=== PATIENT | female | born 1990 | race Caucasian/White ===

== ENCOUNTER 2018-03-10 17:25 | Inpatient (IN) | payer OTHER ==
[2018-03-10 17:58] VITALS: BMI 21.9
--- NOTE | 2018-03-10 19:34 | HP ---
COWS - Scale Resting Pulse: 1= [place] 81-100 Sweatin= Chills/Flushing Restless Observation: 3= Extraneous Movement Pupil Size: 1= Pupils >than Normal Bone or Joint Aches: 2= Severe Diffuse Aches Runny Nose/ Eye Tearin= Runny Nose/Eyes GI Upset > 30mins: 3= Vomiting/Diarrhea Tremor Observation: 2= Slight Tremor Visible Yawning Observation: 2= >3x During Session Anxiety or Irritability: 2=Irritable/Anxious Goose Flesh Skin: 0=Smooth Skin COWS Score: 19 CIWA Score Nausea/Vomitin Muscle Tremors: 3 Anxiety: 2 Agitation: 2 Paroxysmal Sweats: 1-Minimal Palms Moist Orientation: 0-Oriented Tacttile Disturbances: 2-Mild Itch/Numbness/Burn Auditory Disturbances: 1-Very Mild Visual Disturbances: 0-None Headache: 2-Mild CIWA-Ar Total Score: 16 - Admission Criteria OASAS Guidelines: Admission for Medically Managed Detox: Requires at least one of the followin. CIWA greater than 12 2. Seizures within the past 24 hours 3. Delirium tremens within the past 24 hours 4. Hallucinations within the past 24 hours 5. Acute intervention needed for co occurring medical disorder 6. Acute intervention needed for co occurring psychiatric disorder 7. Severe withdrawal that cannot be handled at a lower level of care (continued vomiting, continued diarrhea, abnormal vital signs) requiring intravenous medication and/or fluids 8. Patient presents the following: CIWA greater than 12 Admission Criteria Met: Admission criteria met Admission ROS [facility] Chief Complaint: i need help to stop using heroin and xanax Allergies/Adverse Reactions: Allergies Allergy/AdvReac Type Severity Reaction Status Date / Time No Known Allergies Allergy Verified 03/10/18 18:26 History of Present Illness: this 27 years old female with heroin and xanax dependence,withdrawal symptom, abdominal pain,with nausea,vomiting,last detox 11/23 at [facility] hypertension on medication non compliance asthma bipolar 2 and general anxiety eczema no significant period of sobriety weight loss Exam Limitations: No Limitations - Ebola screening Have you traveled outside of the country in the last 21 days: No (N) Have you had contact with anyone from an Ebola affected area: No Have you been sick,other than usual withdrawal symptoms: No Do you have a fever: No - Review of Systems Constitutional: Chills, Loss of Appetite, Malaise, Night Sweats, Changes in sleep, Weakness, Unintentional Wgt. Loss EENT: reports: Tearing, Nose Congestion, Other (eczema) Respiratory: reports: No Symptoms reported, Other (astma) Cardiac: reports: No Symptoms Reported GI: reports: Nausea, Vomiting, Abdominal cramping : reports: No Symptoms Reported Musculoskeletal: reports: Back Pain, Joint Pain, Muscle Pain Integumentary: reports: Dryness, Other (eczema) Neuro: reports: Headache, Tremors Endocrine: reports: No Symptoms Reported Hematology: reports: No Symptoms Reported Psychiatric: reports: No Sypmtoms Reported, Judgement Intact, Mood/Affect Appropiate, Orientated x3 Other Systems: Reviewed and Negative (bipolar 2) Patient History - Patient Medical History Hx Anemia: No Hx Asthma: Yes (albuterol inhaler and nebulizer) Hx Chronic Obstructive Pulmonary Disease (COPD): No Hx Cancer: No Hx Cardiac Disorders: No Hx Congestive Heart Failure: No Hx Hypertension: No Hx Hypercholesterolemia: No Hx Pacemaker: No HX Cerebrovascular Accident: No Hx Seizures: No Hx Dementia: No Hx Diabetes: No Hx Gastrointestinal Disorders: No Hx Liver Disease: No Hx Genitourinary Disorders: No Hx Sexually Transmitted Disorders: No Hx Renal Disease (ESRD): No Hx Thyroid Disease: No Hx Human Immunodeficiency Virus (HIV): No (last 02/24 negative) Hx Hepatitis C: No Hx Depression: Yes Hx Suicide Attempt: No Hx Bipolar Disorder: Yes (bipolar 2 disorder) Hx Schizophrenia: No Other Medical History: no suicidal,no hpmicidal - Patient Surgical History Past Surgical History: No Hx Neurologic Surgery: No Hx Cataract Extraction: No Hx Cardiac Surgery: No Hx Lung Surgery: No Hx Breast Surgery: No Hx Breast Biopsy: No Hx Abdominal Surgery: No Hx Appendectomy: No Hx Cholecystectomy: No Hx Genitourinary Surgery: No Hx Section: No Hx Orthopedic Surgery: No Hx Hysterectomy: No Anesthesia Reaction: No - PPD History Previous Implant?: Yes Documented Results: Positive w/o proof Implanted On Prior R Admission?: No PPD to be Administered?: No - Reproductive History Patient is a Female of Child Bearing Age (11 -55 yrs old): Yes Last Menstrual Period: 01/20/18 Patient : No - Smoking Cessation Smoking history: Current some day smoker Have you smoked in the past 12 months: No Hx Chewing Tobacco Use: No Initiated information on smoking cessation: No - Substance & Tx. History Hx Alcohol Use: No Hx Substance Use: Yes Substance Use Type: Heroin, Tranquilizers Hx Substance Use Treatment: Yes (11/23 in [facility]) - Substances Abused Heroin Route: Inhalation Frequency: Daily Amount used: 12 bags Age of first use: 26 Date of Last Use: 03/09/18 Alprazolam (Xanax) Route: Oral Frequency: Daily Amount used: 4 mgs Age of first use: 23 Date of Last Use: 03/08/17 Family Disease History - Family Disease History Family History: Denies Admission Physical Exam [facility] - Vital Signs Vital Signs: Vital Signs - 24 hr 03/10/18 17:55 Temperature 99.5 F Pulse Rate 87 Respiratory 18 Rate Blood Pressure 127/75 - Physical General Appearance: Yes: Moderate Distress, Tremorous, Irritable, Sweating, Anxious HEENTM: Yes: Normal ENT Inspection, REHAN, Pharynx Normal, Other (eczema) Respiratory: Yes: Lungs Clear, Normal Breath Sounds, No Respiratory Distress Neck: Yes: Within Normal Limits, Supple, Trachea in good position Breast: Yes: Breast Exam Deferred Cardiology: Yes: Within Normal Limits, Regular Rhythm, Regular Rate, S1, S2 Abdominal: Yes: Within Normal Limits, Normal Bowel Sounds, Non Tender, Flat, Soft Genitourinary: Yes: Within Normal Limits Back: Yes: Muscle Spasm Musculoskeletal: Yes: Back pain, Joint Stiffness, Muscle Pain Extremities: Yes: Tremors 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: 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: 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 II-XII NML intact, Fully Oriented, Alert, Motor Strength 5/5 Integumentary: Yes: Dry, Other (eczema) Lymphatic: Yes: Within Normal Limits - Diagnostic (1) Opioid dependence with withdrawal Current Visit: Yes Status: Acute (2) Uncomplicated sedative, hypnotic or anxiolytic withdrawal Current Visit: Yes Status: Acute (3) Eczema Current Visit: Yes Status: Acute (4) Asthma Current Visit: Yes Status: Acute (5) Bipolar 2 disorder Current Visit: Yes Status: Acute (6) Dehydration Current Visit: Yes Status: Acute Cleared for Admission [facility] - Detox or Rehab [facility] Level of Care: Medically Managed Detox Regimen/Protocol: Methadone/Librium [facility] Breath Alcohol Content Breath Alcohol Content: 0 Urine Pregancy Test - Result Urine Test Results: Negative- NO Line Present Urine Drug Screen - Results Drug Screen Negative: No Urine Drug Screen Results: OPI-Opiates, BZO-Benzodiazepines
[2018-03-10] MEDS ORDERED: IBUPROFEN 400 MG TABLET (FP) PO PRN (19:58)
[2018-03-10] MEDS ORDERED: guaiFENesin/D-METHORPHAN HB 10 ML UNIT-DOSE CUPS PO PRN (19:58)
[2018-03-10] MEDS ORDERED: LOPERAMIDE HCL 2 MG CAPSULE PO PRN (19:58)
[2018-03-10] MEDS ORDERED: P-EPHED 60MG/TRIPROLIDI 2.5MG TABLET PO PRN (19:58)
[2018-03-10] MEDS ORDERED: MAGNESIUM HYDROX 2400MG/30ML ORAL SUSPENSION 30 ML CUP PO PRN (19:58)
[2018-03-10] MEDS ORDERED: MAGNESIUM CITRATE 300 ML BOTTLE PO PRN (19:58)
[2018-03-10] MEDS ORDERED: MAG HYDROX/AL HYDROX/SIMETH 30 ML UNIT-DOSE CUP PO PRN (19:58)
[2018-03-10] MEDS ORDERED: MENTHOL/PHENOL 1 EACH UD MM PRN (19:58)
[2018-03-10] MEDS ORDERED: ALBUTEROL SO4 8 GM HFA INHALER IH PRN (20:01)
[2018-03-10] MEDS ORDERED: ALBUTEROL SO4 2.5/IPRATROPIUM 0.5 INH SOL 3 ML VIAL.NEB. NEB PRN (20:06)
[2018-03-10] MEDS ORDERED: diazePAM 5 MG TABLET PO ONE (20:30)
[2018-03-10] MEDS ORDERED: METHADONE HCL 10 MG TABLET (FOR DETOX USE ONLY) PO ONE ×2 (20:30→23:00)
[2018-03-10] MEDS: THIAMINE HCL 100 MG TABLET (FP) PO SCH (21:21)
[2018-03-10] MEDS: BETAMETHASONE DIPR 0.05% CREAM 15 GM TUBE TP SCH (21:47)
[2018-03-10] MEDS ORDERED: MELATONIN 5 MG TABLETS PO PRN (22:00)
[2018-03-10] MEDS: diazePAM 5 MG TABLET PO SCH (22:39)
[2018-03-11 05:35] LABS: URINE APPEARANCE TURBID; URINE BILIRUBIN NEGATIVE (<2.0 mg/dL); URINE COLOR YELLOW; URINE GLUCOSE (UA) NEGATIVE (NEGATIVE); URINE KETONE 1+ (NEGATIVE); URINE LEUK ESTERASE 1+ (NEGATIVE); URINE NITRITE NEGATIVE (NEGATIVE); URINE PROTEIN 1+ (NEGATIVE); URINE UROBILINOGEN NEGATIVE mg/dL (0.2-1.0)
[2018-03-11] MEDS: diazePAM 5 MG TABLET PO SCH ×3 (05:36→21:49)
[2018-03-11 05:39] LABS: EPI CELLS FEW /HPF (FEW); URINE MUCUS FEW
[2018-03-11] MEDS ORDERED: ONDANSETRON *ODT* 4 MG TABLET SL ONE (09:08)
--- NOTE | 2018-03-11 09:13 | PN ---
[facility] CIWA - CIWA Score Nausea/Vomitin-Mild Nausea/No Vomiting Muscle Tremors: 4-Moderate,w/Arms Extend Anxiety: 3 Agitation: 3 Paroxysmal Sweats: 1-Minimal Palms Moist Orientation: 1-Uncertain about Date Tacttile Disturbances: 0-None Auditory Disturbances: 0-None Visual Disturbances: 0-None Headache: 1-Very Mild CIWA-Ar Total Score: 14 S COWS - Scale Resting Pulse: 0= [place] 80 or Below Sweatin= Chills/Flushing Restless Observation: 1= Difficult to Sit Still Pupil Size: 0= Normal to Room Light Bone or Joint Aches: 2= Severe Diffuse Aches Runny Nose/ Eye Tearin= Nasal Congestion GI Upset > 30mins: 2= Nausea/Diarrhea Tremor Observation of Outstretched Hands: 2= Slight Tremor Visible Yawning Observation: 1= 1-2x During Session Anxiety or Irritability: 1=Feels Anxious/Irritable Goose Flesh Skin: 0=Smooth Skin COWS Score: 11 [facility] Progress Note (SOAP) Subjective: body ache nausea tremor sweating joints pain restlessness Objective: 03/11/18 09:11 Vital Signs Temperature 99.2 F 03/11/18 06:26 Pulse Rate 74 03/11/18 06:26 Respiratory Rate 18 03/11/18 06:26 Blood Pressure 133/76 03/11/18 06:26 O2 Sat by Pulse Oximetry (%) Laboratory Last Values Urine Color Yellow 03/11/18 02:11 Urine Appearance Turbid 03/11/18 02:11 Urine pH 6.0 (5.0-8.0) 03/11/18 02:11 Ur Specific [place] 1.026 (1.010-1.035) 03/11/18 02:11 Urine Protein 1+ (NEGATIVE) H 03/11/18 02:11 Urine Glucose (UA) Negative (NEGATIVE) 03/11/18 02:11 Urine Ketones 1+ (NEGATIVE) H 03/11/18 02:11 Urine Blood Negative (NEGATIVE) 03/11/18 02:11 Urine Nitrite Negative (NEGATIVE) 03/11/18 02:11 Urine Bilirubin Negative (<2.0 mg/dL) 03/11/18 02:11 Urine Urobilinogen Negative mg/dL (0.2-1.0) 03/11/18 02:11 Ur Leukocyte Esterase 1+ (NEGATIVE) H 03/11/18 02:11 Urine WBC (Auto) 6 /hpf (3-5) 03/11/18 02:11 Urine RBC (Auto) 3 /hpf (0-3) 03/11/18 02:11 Ur Epithelial Cells Few /HPF (FEW) 03/11/18 02:11 Urine Mucus Few 03/11/18 02:11 lab noted Assessment: 03/11/18 09:12 xanax and opiate withdrawal sx nausea Plan: continue xanax and opiate detox zofrain sl 4 mg x 1 discontinue motrin begin zantac 150 mn bid
[2018-03-11] MEDS: diazePAM 5 MG TABLET PO PRN (09:41)
[2018-03-11] MEDS: PRENATAL VITAMINS W/ FOLIC ACID TABLET (FP) PO SCH (09:41)
[2018-03-11] MEDS: BETAMETHASONE DIPR 0.05% CREAM 15 GM TUBE TP SCH ×2 (09:43→21:49)
[2018-03-11] MEDS ORDERED: METHADONE HCL 10 MG TABLET (FOR DETOX USE ONLY) PO SCH (10:00)
[2018-03-11 10:24] LABS: ALBUMIN 3.4 g/dl (3.4-5.0); ALK PHOS 54 U/L (45-117); ANION GAP 9 MMOL/L (8-16); BLOOD UREA NITROGEN 10 mg/dL (7-18); CALCIUM 8.7 mg/dL (8.5-10.1); CHLORIDE 102 mmol/L (98-107); CO2 26 mmol/L (21-32); CREATININE 0.7 mg/dL (0.55-1.3); GLUCOSE,RANDOM 83 mg/dL (74-106); POTASSIUM 3.6 mmol/L (3.5-5.1); SGOT/AST 14 U/L (15-37); SGPT/ALT 18 U/L (13-61); SODIUM 136 mmol/L (136-145); TOT PROT 6.8 g/dl (6.4-8.2)
[2018-03-11 10:36] LABS: HEMATOCRIT 34.3 % (32.4-45.2); HEMOGLOBIN 11.8 GM/dL (10.7-15.3); MCH 28.8 pg (25.7-33.7); MCHC 34.5 g/dl (32.0-36.0); MEAN CELL VOLUME 83.5 fl (80-96); MEAN PLT VOLUME 8.3 fl (7.5-11.1); PLATELET COUNT 270 K/MM3 (134-434); RDW 13.8 % (11.6-15.6); WHITE BLOOD COUNT 9.6 K/mm3 (4.0-10.0)
[2018-03-11] MEDS: RANITIDINE HCL 150 MG TABLET (FP) PO SCH ×2 (11:11→21:49)
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
[2018-03-11] MEDS: CITALOPRAM HYDROBROMIDE 20 MG TABLET (FP) PO SCH (12:05)
--- NOTE | 2018-03-11 15:43 | EKG ---
Test Reason : Blood Pressure : / mmHG Vent. Rate : 073 BPM Atrial Rate : 073 BPM P-R Int : 102 ms QRS Dur : 074 ms QT Int : 418 ms P-R-T Axes : 046 062 041 degrees QTc Int : 460 ms SINUS RHYTHM WITH SHORT HI OTHERWISE NORMAL ECG NO PREVIOUS ECGS AVAILABLE Confirmed by DEN LANCASTER MD ([id number]) on 03/11/2018 3:43:16 PM Referred By: Confirmed By:DEN LANCASTER MD
[2018-03-11] MEDS: QUEtiapine FUMARATE 50 MG TABLET PO SCH (21:49)
[2018-03-11] MEDS: THIAMINE HCL 100 MG TABLET (FP) PO SCH (21:49)
[2018-03-11] MEDS: ACETAMINOPHEN 325 MG TABLET (FP) PO PRN (21:52)
[2018-03-11] MEDS: ONDANSETRON *ODT* 4 MG TABLET SL PRN (22:00)
[2018-03-12] MEDS: diazePAM 5 MG TABLET PO PRN ×2 (03:15→17:04)
[2018-03-12] MEDS: ONDANSETRON *ODT* 4 MG TABLET SL PRN ×2 (04:00→15:24)
[2018-03-12] MEDS: ACETAMINOPHEN 325 MG TABLET (FP) PO PRN (07:50)
[2018-03-12] MEDS: hydrOXYzine PAMOATE 25 MG CAPSULE (FP) PO PRN ×2 (07:50→15:24)
[2018-03-12] MEDS: CYCLOBENZAPRINE HCL 10 MG TABLET (FP) PO PRN (07:50)
[2018-03-12] MEDS: METHADONE HCL 5 MG TABLET (FOR DETOX USE ONLY) PO SCH (09:10)
[2018-03-12] MEDS: RANITIDINE HCL 150 MG TABLET (FP) PO SCH ×2 (10:09→22:17)
[2018-03-12] MEDS: CITALOPRAM HYDROBROMIDE 20 MG TABLET (FP) PO SCH (10:09)
[2018-03-12] MEDS: diazePAM 5 MG TABLET PO SCH ×2 (10:10→22:17)
[2018-03-12] MEDS: BETAMETHASONE DIPR 0.05% CREAM 15 GM TUBE TP SCH ×2 (10:10→22:16)
[2018-03-12] MEDS: PRENATAL VITAMINS W/ FOLIC ACID TABLET (FP) PO SCH (10:11)
--- NOTE | 2018-03-12 10:36 | PN ---
S CIWA - CIWA Score Nausea/Vomitin-No Nausea/No Vomiting Muscle Tremors: 2 Anxiety: 3 Agitation: 3 Paroxysmal Sweats: 1-Minimal Palms Moist Orientation: 1-Uncertain about Date Tacttile Disturbances: 0-None Auditory Disturbances: 0-None Visual Disturbances: 0-None Headache: 2-Mild CIWA-Ar Total Score: 12 [facility] COWS - Scale Resting Pulse: 0= [place] 80 or Below Sweatin= Chills/Flushing Restless Observation: 0= Sits Still Pupil Size: 0= Normal to Room Light Bone or Joint Aches: 1= Mild Discomfort Runny Nose/ Eye Tearin= Nasal Congestion GI Upset > 30mins: 1= Stomach Cramp Tremor Observation of Outstretched Hands: 1= Tremor [place], Not Seen Yawning Observation: 1= 1-2x During Session Anxiety or Irritability: 2=Irritable/Anxious Goose Flesh Skin: 0=Smooth Skin COWS Score: 8 S Progress Note (SOAP) Subjective: low energy anxiety trouble sleep at night body aches Objective: 03/12/18 10:35 Vital Signs Temperature 98.8 F 03/12/18 09:06 Pulse Rate 72 03/12/18 09:06 Respiratory Rate 18 03/12/18 09:06 Blood Pressure 132/88 03/12/18 09:06 O2 Sat by Pulse Oximetry (%) Laboratory Last Values WBC 9.6 K/mm3 (4.0-10.0) 03/11/18 07:50 RBC 4.10 M/mm3 (3.60-5.2) 03/11/18 07:50 Hgb 11.8 GM/dL (10.7-15.3) 03/11/18 07:50 Hct 34.3 % (32.4-45.2) 03/11/18 07:50 MCV 83.5 fl (80-96) 03/11/18 07:50 MCH 28.8 pg (25.7-33.7) 03/11/18 07:50 MCHC 34.5 g/dl (32.0-36.0) 03/11/18 07:50 RDW 13.8 % (11.6-15.6) 03/11/18 07:50 Plt Count 270 K/MM3 (134-434) 03/11/18 07:50 MPV 8.3 fl (7.5-11.1) 03/11/18 07:50 Sodium 136 mmol/L (136-145) 03/11/18 07:50 Potassium 3.6 mmol/L (3.5-5.1) 03/11/18 07:50 Chloride 102 mmol/L (98-107) 03/11/18 07:50 Carbon Dioxide 26 mmol/L (21-32) 03/11/18 07:50 Anion Gap 9 MMOL/L (8-16) 03/11/18 07:50 BUN 10 mg/dL (7-18) 03/11/18 07:50 Creatinine 0.7 mg/dL (0.55-1.3) 03/11/18 07:50 Creat Clearance w eGFR > 60 (>60) 03/11/18 07:50 Random Glucose 83 mg/dL (74-106) 03/11/18 07:50 Calcium 8.7 mg/dL (8.5-10.1) 03/11/18 07:50 Total Bilirubin 1.0 mg/dL (0.2-1) 03/11/18 07:50 AST 14 U/L (15-37) L 03/11/18 07:50 ALT 18 U/L (13-61) 03/11/18 07:50 Alkaline Phosphatase 54 U/L (45-117) 03/11/18 07:50 Total Protein 6.8 g/dl (6.4-8.2) 03/11/18 07:50 Albumin 3.4 g/dl (3.4-5.0) 03/11/18 07:50 Urine Color Yellow 03/11/18 02:11 Urine Appearance Turbid 03/11/18 02:11 Urine pH 6.0 (5.0-8.0) 03/11/18 02:11 Ur Specific [place] 1.026 (1.010-1.035) 03/11/18 02:11 Urine Protein 1+ (NEGATIVE) H 03/11/18 02:11 Urine Glucose (UA) Negative (NEGATIVE) 03/11/18 02:11 Urine Ketones 1+ (NEGATIVE) H 03/11/18 02:11 Urine Blood Negative (NEGATIVE) 03/11/18 02:11 Urine Nitrite Negative (NEGATIVE) 03/11/18 02:11 Urine Bilirubin Negative (<2.0 mg/dL) 03/11/18 02:11 Urine Urobilinogen Negative mg/dL (0.2-1.0) 03/11/18 02:11 Ur Leukocyte Esterase 1+ (NEGATIVE) H 03/11/18 02:11 Urine WBC (Auto) 6 /hpf (3-5) 03/11/18 02:11 Urine RBC (Auto) 3 /hpf (0-3) 03/11/18 02:11 Ur Epithelial Cells Few /HPF (FEW) 03/11/18 02:11 Urine Mucus Few 03/11/18 02:11 RPR Titer Nonreactive (NONREACTIVE) 03/11/18 07:50 lab noted Assessment: 03/12/18 10:35 withdrawal sx Plan: continue detox
[2018-03-12] MEDS: THIAMINE HCL 100 MG TABLET (FP) PO SCH (22:16)
[2018-03-12] MEDS: QUEtiapine FUMARATE 50 MG TABLET PO SCH (22:17)
[2018-03-13] MEDS: diazePAM 5 MG TABLET PO PRN (07:29)
[2018-03-13] MEDS: METHADONE HCL 5 MG TABLET (FOR DETOX USE ONLY) PO SCH (09:11)
--- NOTE | 2018-03-13 09:31 | PN ---
[facility] Progress Note (SOAP) Subjective: longest sobriety months support from father and sister patient preferred return to work body aches muscle cramping tremor sweating sleep better last night Objective: 03/13/18 09:27 Vital Signs Temperature 97.9 F 03/13/18 06:15 Pulse Rate 75 03/13/18 06:15 Respiratory Rate 18 03/13/18 06:15 Blood Pressure 121/75 03/13/18 06:15 O2 Sat by Pulse Oximetry (%) Laboratory Last Values WBC 9.6 K/mm3 (4.0-10.0) 03/11/18 07:50 RBC 4.10 M/mm3 (3.60-5.2) 03/11/18 07:50 Hgb 11.8 GM/dL (10.7-15.3) 03/11/18 07:50 Hct 34.3 % (32.4-45.2) 03/11/18 07:50 MCV 83.5 fl (80-96) 03/11/18 07:50 MCH 28.8 pg (25.7-33.7) 03/11/18 07:50 MCHC 34.5 g/dl (32.0-36.0) 03/11/18 07:50 RDW 13.8 % (11.6-15.6) 03/11/18 07:50 Plt Count 270 K/MM3 (134-434) 03/11/18 07:50 MPV 8.3 fl (7.5-11.1) 03/11/18 07:50 Sodium 136 mmol/L (136-145) 03/11/18 07:50 Potassium 3.6 mmol/L (3.5-5.1) 03/11/18 07:50 Chloride 102 mmol/L (98-107) 03/11/18 07:50 Carbon Dioxide 26 mmol/L (21-32) 03/11/18 07:50 Anion Gap 9 MMOL/L (8-16) 03/11/18 07:50 BUN 10 mg/dL (7-18) 03/11/18 07:50 Creatinine 0.7 mg/dL (0.55-1.3) 03/11/18 07:50 Creat Clearance w eGFR > 60 (>60) 03/11/18 07:50 Random Glucose 83 mg/dL (74-106) 03/11/18 07:50 Calcium 8.7 mg/dL (8.5-10.1) 03/11/18 07:50 Total Bilirubin 1.0 mg/dL (0.2-1) 03/11/18 07:50 AST 14 U/L (15-37) L 03/11/18 07:50 ALT 18 U/L (13-61) 03/11/18 07:50 Alkaline Phosphatase 54 U/L (45-117) 03/11/18 07:50 Total Protein 6.8 g/dl (6.4-8.2) 03/11/18 07:50 Albumin 3.4 g/dl (3.4-5.0) 03/11/18 07:50 Urine Color Yellow 03/11/18 02:11 Urine Appearance Turbid 03/11/18 02:11 Urine pH 6.0 (5.0-8.0) 03/11/18 02:11 Ur Specific [place] 1.026 (1.010-1.035) 03/11/18 02:11 Urine Protein 1+ (NEGATIVE) H 03/11/18 02:11 Urine Glucose (UA) Negative (NEGATIVE) 03/11/18 02:11 Urine Ketones 1+ (NEGATIVE) H 03/11/18 02:11 Urine Blood Negative (NEGATIVE) 03/11/18 02:11 Urine Nitrite Negative (NEGATIVE) 03/11/18 02:11 Urine Bilirubin Negative (<2.0 mg/dL) 03/11/18 02:11 Urine Urobilinogen Negative mg/dL (0.2-1.0) 03/11/18 02:11 Ur Leukocyte Esterase 1+ (NEGATIVE) H 03/11/18 02:11 Urine WBC (Auto) 6 /hpf (3-5) 03/11/18 02:11 Urine RBC (Auto) 3 /hpf (0-3) 03/11/18 02:11 Ur Epithelial Cells Few /HPF (FEW) 03/11/18 02:11 Urine Mucus Few 03/11/18 02:11 RPR Titer Nonreactive (NONREACTIVE) 03/11/18 07:50 lab noted Assessment: 03/13/18 09:30 withdrawal sx from benzo and opiate Plan: continue detox regimen that the patient feels less anxious
[2018-03-13 10:20] LABS: URINE APPEARANCE CLOUDY; URINE BILIRUBIN NEGATIVE (<2.0 mg/dL); URINE COLOR DKYELLOW; URINE GLUCOSE (UA) NEGATIVE (NEGATIVE); URINE KETONE NEGATIVE (NEGATIVE); URINE LEUK ESTERASE 1+ (NEGATIVE); URINE NITRITE NEGATIVE (NEGATIVE); URINE PROTEIN NEGATIVE (NEGATIVE)
[2018-03-13] MEDS: diazePAM 5 MG TABLET PO SCH ×2 (10:33→22:22)
[2018-03-13] MEDS: CITALOPRAM HYDROBROMIDE 20 MG TABLET (FP) PO SCH (10:33)
[2018-03-13] MEDS: PRENATAL VITAMINS W/ FOLIC ACID TABLET (FP) PO SCH (10:34)
[2018-03-13] MEDS: BETAMETHASONE DIPR 0.05% CREAM 15 GM TUBE TP SCH ×2 (10:34→22:22)
[2018-03-13] MEDS: ONDANSETRON *ODT* 4 MG TABLET SL PRN (10:35)
[2018-03-13] MEDS: RANITIDINE HCL 150 MG TABLET (FP) PO SCH ×2 (10:35→22:22)
[2018-03-13 10:51] LABS: EPI CELLS RARE /HPF (FEW); URINE BACTERIA FEW /hpf (NONE SEEN); URINE HYALINE CAST 2 /lpf; URINE MUCUS MANY
[2018-03-13] MEDS: THIAMINE HCL 100 MG TABLET (FP) PO SCH (22:22)
[2018-03-13] MEDS: QUEtiapine FUMARATE 50 MG TABLET PO SCH (22:22)
[2018-03-14] MEDS: RANITIDINE HCL 150 MG TABLET (FP) PO SCH ×2 (09:09→22:20)
[2018-03-14] MEDS: CITALOPRAM HYDROBROMIDE 20 MG TABLET (FP) PO SCH (09:09)
[2018-03-14] MEDS: PRENATAL VITAMINS W/ FOLIC ACID TABLET (FP) PO SCH (09:09)
[2018-03-14] MEDS: BETAMETHASONE DIPR 0.05% CREAM 15 GM TUBE TP SCH ×2 (09:12→22:20)
[2018-03-14] MEDS ORDERED: diazePAM 5 MG TABLET PO SCH (10:00)
[2018-03-14] MEDS ORDERED: METHADONE HCL 10 MG TABLET (FOR DETOX USE ONLY) PO SCH (10:00)
[2018-03-14] MEDS: hydrOXYzine PAMOATE 25 MG CAPSULE (FP) PO PRN (11:21)
--- NOTE | 2018-03-14 15:20 | PN ---
[facility] Progress Note (SOAP) Subjective: Stomach Cramping, Nausea, Body Aches, Tremors. Objective: PATIENT A & O X 3. IN NO ACUTE DISTRESS. 03/14/18 15:19 Vital Signs Temperature 97.6 F 03/14/18 13:34 Pulse Rate 84 03/14/18 13:34 Respiratory Rate 18 03/14/18 13:34 Blood Pressure 113/71 03/14/18 13:34 O2 Sat by Pulse Oximetry (%) Laboratory Tests 03/11/18 03/11/18 03/11/18 02:11 07:50 07:50 WBC 9.6 RBC 4.10 Hgb 11.8 Hct 34.3 MCV 83.5 MCH 28.8 MCHC 34.5 RDW 13.8 Plt Count 270 MPV 8.3 Sodium 136 Potassium 3.6 Chloride 102 Carbon Dioxide 26 Anion Gap 9 BUN 10 Creatinine 0.7 Creat Clearance w eGFR > 60 Random Glucose 83 Calcium 8.7 Total Bilirubin 1.0 AST 14 L ALT 18 Alkaline Phosphatase 54 Total Protein 6.8 Albumin 3.4 Urine Color Yellow Urine Appearance Turbid Urine pH 6.0 Ur Specific [place] 1.026 Urine Protein 1+ H Urine Glucose (UA) Negative Urine Ketones 1+ H Urine Blood Negative Urine Nitrite Negative Urine Bilirubin Negative Urine Urobilinogen Negative Ur Leukocyte Esterase 1+ H Urine WBC (Auto) 6 Urine RBC (Auto) 3 Ur Epithelial Cells Few Urine Bacteria Hyaline Casts Urine Mucus Few RPR Titer 03/11/18 03/13/18 07:50 08:30 WBC RBC Hgb Hct MCV MCH MCHC RDW Plt Count MPV Sodium Potassium Chloride Carbon Dioxide Anion Gap BUN Creatinine Creat Clearance w eGFR Random Glucose Calcium Total Bilirubin AST ALT Alkaline Phosphatase Total Protein Albumin Urine Color Dkyellow Urine Appearance Cloudy Urine pH 6.0 Ur Specific [place] 1.017 Urine Protein Negative Urine Glucose (UA) Negative Urine Ketones Negative Urine Blood Negative Urine Nitrite Negative Urine Bilirubin Negative Urine Urobilinogen 2.0 H Ur Leukocyte Esterase 1+ H Urine WBC (Auto) 4 Urine RBC (Auto) 2 Ur Epithelial Cells Rare Urine Bacteria Few Hyaline Casts 2 Urine Mucus Many RPR Titer Nonreactive LABS NOTED. Assessment: 03/14/18 15:20 WITHDRAWAL SYMPTOMS. Plan: CONTINUE DETOX. INCREASE DAILY PO FLUID INTAKE.
[2018-03-14] MEDS: QUEtiapine FUMARATE 50 MG TABLET PO SCH (22:20)
[2018-03-14] MEDS: THIAMINE HCL 100 MG TABLET (FP) PO SCH (22:20)
[2018-03-14] MEDS: ONDANSETRON *ODT* 4 MG TABLET SL PRN (22:22)
[2018-03-15] MEDS: CYCLOBENZAPRINE HCL 10 MG TABLET (FP) PO PRN (05:51)
[2018-03-15] MEDS ORDERED: METHADONE HCL 5 MG TABLET (FOR DETOX USE ONLY) PO SCH (06:00)
[2018-03-15 06:27] VITALS: BP 128/84; PULSE 98; TEMP 99.1
--- NOTE | 2018-03-15 13:43 | DS ---
[facility] Detox Discharge Summary Admission Date: 03/10/18 Discharge Date: 03/15/18 - History Present History: Opioid Dependence, Sedative Dependence Additional Comments: PATIENT DECLINES OFFER OF ADMISSION TO [facility] ([place], [place] ) AT THIS TIME. PATIENT WILL ATTEND [facility] [place], [place]) M.M.T.P. / [facility] [facility]INTENANCE OUTPATIENT PROGRAM FOR AFTERCARE. PATIENT ADVISED TO FOLLOW-UP WITH PSYCHIATRIST DR. CEVALLOS SOON POSSIBLE AFTER DISCHARGE FROM DETOX UNIT FOR HISTORY OF BIPOLAR DISORDER, DEPRESSION, AND OF PRESCRIBED XANAX BY DR. CEVALLOS ON AN OUTPATIENT BASIS. PATIENT VERBALIZED UNDERSTANDING OF RECOMMENDATION. PATIENT WAS DISCHARGED FROM DETOX UNIT IN STABLE MEDICAL CONDITION. Pertinent Past History: Asthma, Eczema, History of Depression, Bipolar II Disorder, Dehydration. - Physical Exam Results Vital Signs: Vital Signs Temperature 99.1 F 03/15/18 06:26 Pulse Rate 98 H 03/15/18 06:26 Respiratory Rate 18 03/15/18 06:26 Blood Pressure 128/84 03/15/18 06:26 O2 Sat by Pulse Oximetry (%) Pertinent Admission Physical Exam Findings: WITHDRAWAL SYMPTOMS. Laboratory Tests 03/11/18 03/11/18 03/11/18 02:11 07:50 07:50 WBC 9.6 RBC 4.10 Hgb 11.8 Hct 34.3 MCV 83.5 MCH 28.8 MCHC 34.5 RDW 13.8 Plt Count 270 MPV 8.3 Sodium 136 Potassium 3.6 Chloride 102 Carbon Dioxide 26 Anion Gap 9 BUN 10 Creatinine 0.7 Creat Clearance w eGFR > 60 Random Glucose 83 Calcium 8.7 Total Bilirubin 1.0 AST 14 L ALT 18 Alkaline Phosphatase 54 Total Protein 6.8 Albumin 3.4 Urine Color Yellow Urine Appearance Turbid Urine pH 6.0 Ur Specific [place] 1.026 Urine Protein 1+ H Urine Glucose (UA) Negative Urine Ketones 1+ H Urine Blood Negative Urine Nitrite Negative Urine Bilirubin Negative Urine Urobilinogen Negative Ur Leukocyte Esterase 1+ H Urine WBC (Auto) 6 Urine RBC (Auto) 3 Ur Epithelial Cells Few Urine Bacteria Hyaline Casts Urine Mucus Few RPR Titer 03/11/18 03/13/18 07:50 08:30 WBC RBC Hgb Hct MCV MCH MCHC RDW Plt Count MPV Sodium Potassium Chloride Carbon Dioxide Anion Gap BUN Creatinine Creat Clearance w eGFR Random Glucose Calcium Total Bilirubin AST ALT Alkaline Phosphatase Total Protein Albumin Urine Color Dkyellow Urine Appearance Cloudy Urine pH 6.0 Ur Specific [place] 1.017 Urine Protein Negative Urine Glucose (UA) Negative Urine Ketones Negative Urine Blood Negative Urine Nitrite Negative Urine Bilirubin Negative Urine Urobilinogen 2.0 H Ur Leukocyte Esterase 1+ H Urine WBC (Auto) 4 Urine RBC (Auto) 2 Ur Epithelial Cells Rare Urine Bacteria Few Hyaline Casts 2 Urine Mucus Many RPR Titer Nonreactive LABS NOTED. - Treatment Hospital Course: Detox Protocol Followed, Detoxed Safely, Responded well, Discharged Condition Good Patient has Accepted a Rehab Referral to: [facility] - Medication Discharge Medications: Ambulatory Orders Alprazolam [Xanax] 2 mg PO BID 03/10/18 Citalopram Hydrobromide [Celexa -] 40 mg PO DAILY 03/10/18 Clobetasol Propionate/Emoll [Clobetasol Emollient 0.05% Crm] 15 gm TP BID Quetiapine Fumarate [Seroquel -] 50 mg PO HS 03/10/18 Albuterol Sulfate Inhaler - [Ventolin Hfa Inhaler -] 2 inh PO Q4H PRN #1 inhaler 03/14/18 - Diagnosis (1) Asthma Status: Acute Qualifiers: Asthma severity: mild Asthma persistence: intermittent Asthma complication type: uncomplicated Qualified Code(s): J45.20 - Mild intermittent asthma, uncomplicated (2) Bipolar 2 disorder Status: Acute (3) Dehydration Status: Acute (4) Eczema Status: Acute Qualifiers: Eczema type: unspecified Qualified Code(s): L30.9 - Dermatitis, unspecified (5) Opioid dependence with withdrawal Status: Acute (6) Uncomplicated sedative, hypnotic or anxiolytic withdrawal Status: Acute - AMA Did Patient Leave Against Medical Advice: No
== END 2018-03-15 09:44 | disposition home or self-care (01) | DRG 773 ==
LOC: YASAS 17:25 → Y3N 19:57
PROVIDERS: ADMIT Neuromusculoskeletal Medicine & OMM; ATTEND Neuromusculoskeletal Medicine & OMM
PROC: HZ2ZZZZ Detoxification Services for Substance Abuse Treatment (ICD-10-PCS; principal; 2018-03-10)
DX: F11.23 Opioid dependence with withdrawal (principal); F13.230 Sedative, hypnotic or anxiolytic dependence with withdrawal, uncomplicated; F31.81 Bipolar II disorder; I10 Essential (primary) hypertension; J45.20 Mild intermittent asthma, uncomplicated; E86.0 Dehydration; L30.9 Dermatitis, unspecified; R11.0 Nausea; Z91.14 Patient's other noncompliance with medication regimen
CPT/HCPCS: 36415; 71045-TC-FY; 80053; 81003; 81015; 85027; 86593; 93005; 93010; Q0162

== ENCOUNTER 2018-04-12 10:19 | Inpatient (IN) | payer OTHER ==
[2018-04-12 12:37] VITALS: BMI 19.0
--- NOTE | 2018-04-12 14:45 | HP ---
COWS - Scale Resting Pulse: 4= OR > 121 Sweatin= Chills/Flushing Restless Observation: 3= Extraneous Movement Pupil Size: 1= Pupils >than Normal Bone or Joint Aches: 2= Severe Diffuse Aches Runny Nose/ Eye Tearin= Runny Nose/Eyes GI Upset > 30mins: 2= Nausea/Diarrhea Tremor Observation: 2= Slight Tremor Visible Yawning Observation: 2= >3x During Session Anxiety or Irritability: 2=Irritable/Anxious Goose Flesh Skin: 0=Smooth Skin COWS Score: 21 CIWA Score - Admission Criteria [facility]ASAS Guidelines: Admission for Medically Managed Detox: Requires at least one of the followin. CIWA greater than 12 2. Seizures within the past 24 hours 3. Delirium tremens within the past 24 hours 4. Hallucinations within the past 24 hours 5. Acute intervention needed for co occurring medical disorder 6. Acute intervention needed for co occurring psychiatric disorder 7. Severe withdrawal that cannot be handled at a lower level of care (continued vomiting, continued diarrhea, abnormal vital signs) requiring intravenous medication and/or fluids 8. Admission ROS [facility] - [facility] Chief Complaint: i need help to stop using heroin Allergies/Adverse Reactions: Allergies Allergy/AdvReac Type Severity Reaction Status Date / Time No Known Allergies Allergy Verified 04/12/18 14:44 History of Present Illness: this 28 year sold female with heroin dependence seeking detox,withdrawal symptom ,last detox [facility] 03/10/18 to 03/15/18 multiple admissions in detox,last [facility] 03/10/18 to 03/15/18 keep relapsing history of asthma,hypertension,adhd,bipolar 2 disorder,eczema former smoker weight loss no significant period of sobriety plan for rehab after detox Exam Limitations: No Limitations - Ebola screening Have you traveled outside of the country in the last 21 days: No Have you had contact with anyone from an Ebola affected area: No Have you been sick,other than usual withdrawal symptoms: No Do you have a fever: No - Review of Systems Constitutional: Chills, Loss of Appetite, Malaise, Night Sweats, Changes in sleep, Weakness, Unintentional Wgt. Loss EENT: reports: Tearing, Nose Congestion Respiratory: reports: No Symptoms reported, Other (history of asthma) Cardiac: reports: Palpitations GI: reports: Nausea, Vomiting, Abdominal cramping : reports: No Symptoms Reported Musculoskeletal: reports: Back Pain, Joint Pain, Muscle Pain, Joint Stiffness Integumentary: reports: Dryness, Other (eczema) Neuro: reports: Headache, Tremors Endocrine: reports: No Symptoms Reported Hematology: reports: No Symptoms Reported Psychiatric: reports: No Sypmtoms Reported, Judgement Intact, Mood/Affect Appropiate, Orientated x3, other (bipolar 2 disorder) Other Systems: Reviewed and Negative Patient History - Patient Medical History Hx Anemia: No Hx Asthma: Yes (albuterol inhaler and nebulizer) Hx Chronic Obstructive Pulmonary Disease (COPD): No Hx Cancer: No Hx Cardiac Disorders: No Hx Congestive Heart Failure: No Hx Hypertension: No Hx Hypercholesterolemia: No Hx Pacemaker: No HX Cerebrovascular Accident: No Hx Seizures: No Hx Dementia: No Hx Diabetes: No Hx Gastrointestinal Disorders: No Hx Liver Disease: No Hx Genitourinary Disorders: No Hx Sexually Transmitted Disorders: No Hx Renal Disease (ESRD): No Hx Thyroid Disease: No Hx Human Immunodeficiency Virus (HIV): No (last 02/24 negative) Hx Hepatitis C: No Hx Depression: Yes Hx Suicide Attempt: Yes (box cutter 2017) Hx Bipolar Disorder: Yes (bipolar 2 disorder) Hx Schizophrenia: No Other Medical History: no suicidal,n homicidal - Patient Surgical History Past Surgical History: No Hx Neurologic Surgery: No Hx Cataract Extraction: No Hx Cardiac Surgery: No Hx Lung Surgery: No Hx Breast Surgery: No Hx Breast Biopsy: No Hx Abdominal Surgery: No Hx Appendectomy: No Hx Cholecystectomy: No Hx Genitourinary Surgery: No Hx Section: No Hx Orthopedic Surgery: No Hx Hysterectomy: No Anesthesia Reaction: No - PPD History Previous Implant?: Yes Documented Results: Positive w/o proof PPD to be Administered?: No - Reproductive History Patient is a Female of Child Bearing Age (11 -55 yrs old): Yes Last Menstrual Period: 01/20/18 - Smoking Cessation Smoking history: Never smoked Have you smoked in the past 12 months: No Hx Chewing Tobacco Use: No - Substance & Tx. History Hx Alcohol Use: No Hx Substance Use: Yes Substance Use Type: Heroin Hx Substance Use Treatment: Yes ([facility] 03/27 negative) - Substances Abused Heroin Route: Inhalation Frequency: Daily Amount used: 15-20 bags Age of first use: 27 Date of Last Use: 04/11/18 Family Disease History - Family Disease History Family History: Denies Admission Physical Exam [facility] - Vital Signs Vital Signs: Vital Signs - 24 hr 04/12/18 12:34 Temperature 97.8 F Pulse Rate 128 H Respiratory 18 Rate Blood Pressure 119/87 - Physical General Appearance: Yes: Moderate Distress, Tremorous, Irritable, Sweating, Anxious HEENTM: Yes: Normal ENT Inspection, REHAN, Pharynx Normal Respiratory: Yes: Respiratory Distress, Other (expiratory wheeezing) Neck: Yes: Within Normal Limits, No masses,lesions,Nodules, Supple Breast: Yes: Breast Exam Deferred Cardiology: Yes: Tachycardia Abdominal: Yes: Within Normal Limits, Normal Bowel Sounds, Non Tender, Soft Genitourinary: Yes: Within Normal Limits Back: Yes: Muscle Spasm Musculoskeletal: Yes: Back pain, Joint Stiffness, Muscle Pain Extremities: Yes: Tremors 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: Yes: 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 conservation 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 II-XII NML intact, Fully Oriented, Alert, Motor Strength 5/5 Integumentary: Yes: Dry, Other (eczema) Lymphatic: Yes: Within Normal Limits - Diagnostic (1) Opioid dependence with withdrawal Current Visit: Yes Status: Acute (2) Asthma Current Visit: No Status: Acute Qualifiers: Asthma severity: mild Asthma persistence: intermittent Asthma complication type: uncomplicated Qualified Code(s): J45.20 - Mild intermittent asthma, uncomplicated (3) Bipolar 2 disorder Current Visit: No Status: Acute (4) Dehydration Current Visit: No Status: Acute (5) Eczema Current Visit: No Status: Acute Qualifiers: Eczema type: unspecified Qualified Code(s): L30.9 - Dermatitis, unspecified (6) ADHD Current Visit: Yes Status: Acute (7) Weight loss Current Visit: Yes Status: Acute (8) Acute exacerbation of COPD with asthma Current Visit: Yes Status: Acute Cleared for Admission [facility] - Detox or Rehab [facility] Level of Care: Medically Managed Detox Regimen/Protocol: Methadone [facility] Breath Alcohol Content Breath Alcohol Content: 0 Urine Pregancy Test - Result Urine Test Results: Negative - NO Line Present Urine Drug Screen - Results Drug Screen Negative: No Urine Drug Screen Results: DIEGO-Cocaine, OPI-Opiates, BZO-Benzodiazepines, OXY- Oxycodone Inpatient Rehab Admission - Rehab Decision to Admit Inpatient rehab admission?: No
[2018-04-12] MEDS ORDERED: ACETAMINOPHEN 325 MG TABLET (FP) PO PRN ×2 (15:03)
[2018-04-12] MEDS ORDERED: cloNIDine HCL 0.1 MG TABLET PO PRN (15:03)
[2018-04-12] MEDS ORDERED: MAGNESIUM CITRATE 300 ML BOTTLE PO PRN (15:03)
[2018-04-12] MEDS ORDERED: BISMUTH SUBSALICYLATE 262 MG/15 ML BTL PO PRN (15:03)
[2018-04-12] MEDS ORDERED: MAGNESIUM HYDROX 2400MG/30ML ORAL SUSPENSION 30 ML CUP PO PRN (15:03)
[2018-04-12] MEDS ORDERED: MAG HYDROX/AL HYDROX/SIMETH 30 ML UNIT-DOSE CUP PO PRN (15:03)
[2018-04-12] MEDS ORDERED: IBUPROFEN 400 MG TABLET (FP) PO PRN (15:03)
[2018-04-12] MEDS ORDERED: MELATONIN 5 MG TABLETS PO PRN (15:03)
[2018-04-12] MEDS ORDERED: MENTHOL/PHENOL 1 EACH UD MM PRN (15:03)
[2018-04-12] MEDS ORDERED: METHOCARBAMOL 500 MG TABLET PO PRN (15:03)
[2018-04-12] MEDS ORDERED: ALBUTEROL SO4 8 GM HFA INHALER IH PRN (15:11)
[2018-04-12] MEDS ORDERED: METHADONE HCL 10 MG TABLET (FOR DETOX USE ONLY) PO ONE ×2 (15:30→23:00)
--- NOTE | 2018-04-12 15:49 | PN ---
BHS Progress Note Note: expiratory wheezing duoneb nebulizer treatment will continue albuterol inhaler,duoneb nebulizer q 6 hrs prn,to start on prednisone taper off close monitoring
[2018-04-12] MEDS ORDERED: predniSONE 20 MG TABLET (UD) PO ONE (16:30)
[2018-04-12] MEDS: diazePAM 5 MG TABLET PO PRN ×2 (16:34→21:15)
--- NOTE | 2018-04-12 17:08 | CONSULT ---
[facility] Psychiatric Consult - Data Date of interview: 04/12/18 Admission source: [facility] Identifying data: Patient is a 28 year old single female, mother of one, unemployed, and is residing and supported by her father. This is one of multiple admissions for patient. Patient admitted to for opiate dependence. Substance Abuse History: Smoking Cessation. Smoking history: Current some day smoker. Have you smoked in the past 12 months: No. Hx Chewing Tobacco Use: No. - Substance & Tx. History. Hx Alcohol Use: No. Hx Substance Use: Yes. Substance Use Type: Heroin. Hx Substance Use Treatment: Yes ([facility] 03/27 negative). - Substances Abused. Heroin. Route: Inhalation. Frequency: Daily. Amount used: 15-20 bags. Age of first use: 27. Date of Last Use: 04/11 Medical History: Asthma Psychiatric History: Patient's first psychiatric contact was at 6 years of age after her mother took her to see a psychiatrist for hyperactivity. Patient was diagnosed with ADHD but was not prescribed medications because her parents refused. Patient than saw a psychiatrist again at 20 years of age and was prescribed wellbutrin for depression. Ms. Rodriguez reports h/o approximately six psychiatric hospitalizations most recently at [facility] in 2018. She is also known to [facility] and [facility] located in [place]. Patient reports two suicide attempt by self mutilation. Patient's most recent outpatient psychiatric care was provided at a private office in the [place]. She reports being prescribed celexa 40mg + Lamictal + xanac + adderall. Patient has a diagnosis of REENA, bipolar II disorder and ADHD. She reports noncompliance to medications because she no longer has access to see a psychiatrist due to her insurance. At present, patient is mildly anxious. Physical/Sexual Abuse/Trauma History: denies. Mental Status Exam - Mental Status Exam Alert and Oriented to: Time, Place, Person Cognitive Function: Good Patient Appearance: Unkempt Mood: Anxious Affect: Mood Congruent Patient Behavior: Appropriate, Cooperative Speech Pattern: Clear, Appropriate Voice Loudness: Normal Thought Process: Goal Oriented Thought Disorder: Not Present Hallucinations: Denies Suicidal Ideation: Denies Homicidal Ideation: Denies Insight/Judgement: Poor Sleep: Poorly Appetite: Fair Muscle strength/Tone: Normal Gait/Station: Normal Psychiatric Findings - Problem List ([place] 1, 2,3) (1) Bipolar II disorder Current Visit: Yes Status: Chronic (2) REENA (generalized anxiety disorder) Current Visit: Yes Status: Acute (3) ADHD Current Visit: Yes Status: Acute (4) Opioid dependence with withdrawal Current Visit: Yes Status: Acute - Initial Treatment Plan Initial Treatment Plan: Psychoeducation provided. Detoxification in progress. Will order Celexa 20mg + Seroquel 25mg qhs. Benefits and side effects discussed. Verbal consent given.
[2018-04-12] MEDS: ALBUTEROL SO4 2.5/IPRATROPIUM 0.5 INH SOL 3 ML VIAL.NEB. NEB PRN (20:15)
[2018-04-12] MEDS: THIAMINE HCL 100 MG TABLET (FP) PO SCH (22:05)
[2018-04-12] MEDS: FLUOCINONIDE 0.05% TOP OINT (60 GM TUBE) TP SCH (22:05)
[2018-04-12] MEDS: QUEtiapine FUMARATE 25 MG TABLET (FP) PO SCH (22:05)
[2018-04-13] MEDS: diazePAM 5 MG TABLET PO PRN ×2 (08:01→14:15)
[2018-04-13] MEDS ORDERED: predniSONE 10 MG TABLET (UD) PO ONE (10:00)
[2018-04-13] MEDS ORDERED: METHADONE HCL 10 MG TABLET (FOR DETOX USE ONLY) PO ONE (10:00)
[2018-04-13] MEDS ORDERED: CITALOPRAM HYDROBROMIDE 40 MG TABLET PO SCH (10:00)
[2018-04-13] MEDS: PRENATAL VITAMINS W/ FOLIC ACID TABLET (FP) PO SCH (10:36)
[2018-04-13] MEDS: FLUOCINONIDE 0.05% TOP OINT (60 GM TUBE) TP SCH ×2 (10:37→22:55)
[2018-04-13 10:45] LABS: HEMATOCRIT 40.1 % (32.4-45.2); MCH 29.2 pg (25.7-33.7); MCHC 34.9 g/dl (32.0-36.0); MEAN CELL VOLUME 83.6 fl (80-96); MEAN PLT VOLUME 9.2 fl (7.5-11.1); PLATELET COUNT 331 K/MM3 (134-434); RDW 14.2 % (11.6-15.6); WHITE BLOOD COUNT 11.6 K/mm3 (4.0-10.0)
[2018-04-13 11:03] LABS: ALBUMIN 3.8 g/dl (3.4-5.0); ALK PHOS 74 U/L (45-117); ANION GAP 7 MMOL/L (8-16); BILIRUBIN,TOTAL 0.7 mg/dL (0.2-1); BLOOD UREA NITROGEN 13 mg/dL (7-18); CALCIUM 9.5 mg/dL (8.5-10.1); CHLORIDE 103 mmol/L (98-107); CO2 29 mmol/L (21-32); CREATININE 0.7 mg/dL (0.55-1.3); GLUCOSE,RANDOM 70 mg/dL (74-106); POTASSIUM 4.2 mmol/L (3.5-5.1); SGOT/AST 19 U/L (15-37); SGPT/ALT 18 U/L (13-61); SODIUM 138 mmol/L (136-145); TOT PROT 7.8 g/dl (6.4-8.2)
[2018-04-13] MEDS: ALBUTEROL SO4 2.5/IPRATROPIUM 0.5 INH SOL 3 ML VIAL.NEB. NEB PRN (12:53)
[2018-04-13] MEDS ORDERED: TRIMETHOBENZAMIDE HCL 200MG/2ML INJ IM PRN (15:31)
[2018-04-13] MEDS: THIAMINE HCL 100 MG TABLET (FP) PO SCH (22:55)
[2018-04-13] MEDS: QUEtiapine FUMARATE 25 MG TABLET (FP) PO SCH (22:55)
--- NOTE | 2018-04-14 00:47 | PN ---
[facility] COWS - Scale Resting Pulse: 4= NH > 121 Sweatin= No chills or Flushing Restless Observation: 1= Difficult to Sit Still Pupil Size: 0= Normal to Room Light Bone or Joint Aches: 2= Severe Diffuse Aches Runny Nose/ Eye Tearin= None GI Upset > 30mins: 2= Nausea/Diarrhea Tremor Observation of Outstretched Hands: 0= None Yawning Observation: 1= 1-2x During Session Anxiety or Irritability: 2=Irritable/Anxious Goose Flesh Skin: 0=Smooth Skin COWS Score: 12 S Progress Note (SOAP) Subjective: Anxious, Nausea, Body Aches. Objective: PATIENT A & O X 3, OBSERVED AMBULATING ON UNIT. IN NO ACUTE DISTRESS. PATIENT AFEBRILE. 04/14/18 00:48 Vital Signs Temperature 97.9 F 04/13/18 22:00 Pulse Rate 121 H 04/13/18 22:00 Respiratory Rate 17 04/13/18 22:00 Blood Pressure 114/77 04/13/18 22:00 O2 Sat by Pulse Oximetry (%) Laboratory Tests 04/13/18 04/13/18 06:00 06:00 WBC 11.6 H RBC 4.80 Hgb 14.0 Hct 40.1 D MCV 83.6 MCH 29.2 MCHC 34.9 RDW 14.2 Plt Count 331 D MPV 9.2 D Sodium 138 Potassium 4.2 Chloride 103 Carbon Dioxide 29 Anion Gap 7 L BUN 13 Creatinine 0.7 Creat Clearance w eGFR > 60 Random Glucose 70 L Calcium 9.5 Total Bilirubin 0.7 AST 19 ALT 18 Alkaline Phosphatase 74 Total Protein 7.8 Albumin 3.8 LABS NOTED. 04/14/18 00:50 Assessment: 04/14/18 00:49 WITHDRAWAL SYMPTOMSS. LEUKOCYTOSIS. TACHYCARDIA. 04/14/18 00:51 Plan: CONTINUE DETOX. INCREASE DAILY PO FLUID INTAKE. REPEAT CBC TOMORROW AM FOR ELEVATED ADMISSION WBC LEVEL.
[2018-04-14] MEDS: diazePAM 5 MG TABLET PO PRN ×4 (05:22→20:04)
[2018-04-14] MEDS ORDERED: METHADONE HCL 10 MG TABLET (FOR DETOX USE ONLY) PO ONE (10:00)
[2018-04-14] MEDS ORDERED: predniSONE 20 MG TABLET (UD) PO ONE (10:00)
[2018-04-14 10:23] LABS: BASO % 0.3 % (0-2.0); EOS % 3.2 % (0-4.5); HEMATOCRIT 36.2 % (32.4-45.2); HEMOGLOBIN 12.8 GM/dL (10.7-15.3); LYMPH % 27.3 % (8-40); MCH 29.4 pg (25.7-33.7); MCHC 35.2 g/dl (32.0-36.0); MEAN CELL VOLUME 83.4 fl (80-96); MEAN PLT VOLUME 8.7 fl (7.5-11.1); MONO % 7.3 % (3.8-10.2); NEUT % 61.9 % (42.8-82.8); PLATELET COUNT 238 K/MM3 (134-434); RBC 4.34 M/mm3 (3.60-5.2); RDW 13.8 % (11.6-15.6); WHITE BLOOD COUNT 8.4 K/mm3 (4.0-10.0)
[2018-04-14] MEDS: PRENATAL VITAMINS W/ FOLIC ACID TABLET (FP) PO SCH (10:50)
[2018-04-14] MEDS: FLUOCINONIDE 0.05% TOP OINT (60 GM TUBE) TP SCH ×2 (10:51→22:41)
[2018-04-14] MEDS: CITALOPRAM HYDROBROMIDE 20 MG TABLET (FP) PO SCH (10:51)
[2018-04-14] MEDS: ALBUTEROL SO4 2.5/IPRATROPIUM 0.5 INH SOL 3 ML VIAL.NEB. NEB PRN ×2 (11:19→16:47)
--- NOTE | 2018-04-14 15:38 | PN ---
[facility] COWS - Scale Resting Pulse: 4= ME > 121 Sweatin= Chills/Flushing Restless Observation: 1= Difficult to Sit Still Pupil Size: 0= Normal to Room Light Bone or Joint Aches: 2= Severe Diffuse Aches Runny Nose/ Eye Tearin= None GI Upset > 30mins: 2= Nausea/Diarrhea Tremor Observation of Outstretched Hands: 0= None Yawning Observation: 1= 1-2x During Session Anxiety or Irritability: 2=Irritable/Anxious Goose Flesh Skin: 0=Smooth Skin COWS Score: 13 S Progress Note (SOAP) Subjective: Anxious, Nausea, Body Aches. Objective: PATIENT A & O X 3, OBSERVED AMBULATING ON UNIT. IN NO ACUTE DISTRESS. 04/14/18 15:39 Vital Signs Temperature 96.5 F L 04/14/18 13:59 Pulse Rate 136 H 04/14/18 13:59 Respiratory Rate 19 04/14/18 13:59 Blood Pressure 121/72 04/14/18 13:59 O2 Sat by Pulse Oximetry (%) Laboratory Tests 04/13/18 04/13/18 04/13/18 06:00 06:00 06:00 WBC 11.6 H RBC 4.80 Hgb 14.0 Hct 40.1 D MCV 83.6 MCH 29.2 MCHC 34.9 RDW 14.2 Plt Count 331 D MPV 9.2 D Absolute Neuts (auto) Neutrophils % Lymphocytes % Monocytes % Eosinophils % Basophils % Nucleated RBC % Sodium 138 Potassium 4.2 Chloride 103 Carbon Dioxide 29 Anion Gap 7 L BUN 13 Creatinine 0.7 Creat Clearance w eGFR > 60 Random Glucose 70 L Calcium 9.5 Total Bilirubin 0.7 AST 19 ALT 18 Alkaline Phosphatase 74 Total Protein 7.8 Albumin 3.8 RPR Titer Nonreactive 04/14/18 07:40 WBC 8.4 RBC 4.34 Hgb 12.8 Hct 36.2 MCV 83.4 MCH 29.4 MCHC 35.2 RDW 13.8 Plt Count 238 D MPV 8.7 Absolute Neuts (auto) 5.2 Neutrophils % 61.9 Lymphocytes % 27.3 Monocytes % 7.3 Eosinophils % 3.2 Basophils % 0.3 Nucleated RBC % 0 Sodium Potassium Chloride Carbon Dioxide Anion Gap BUN Creatinine Creat Clearance w eGFR Random Glucose Calcium Total Bilirubin AST ALT Alkaline Phosphatase Total Protein Albumin RPR Titer LABS NOTED. RESULTS OF REPEAT CBC NOTED. WBC LEVEL NOW NOTED TO BE WITHIN NORMAL RANGE. Assessment: 04/14/18 15:40 WITHDRAWAL SYMPTOMS. Plan: CONTINUE DETOX. INCREASE DAILY PO FLUID INTAKE. PRN TIGAN IM FOR NAUSEA.
[2018-04-14] MEDS: THIAMINE HCL 100 MG TABLET (FP) PO SCH (22:41)
[2018-04-14] MEDS: QUEtiapine FUMARATE 25 MG TABLET (FP) PO SCH (22:41)
[2018-04-14] MEDS: hydrOXYzine PAMOATE 25 MG CAPSULE (FP) PO PRN (22:41)
[2018-04-15] MEDS: diazePAM 5 MG TABLET PO PRN ×3 (06:01→14:51)
[2018-04-15] MEDS ORDERED: METHADONE HCL 10 MG TABLET (FOR DETOX USE ONLY) PO ONE (10:00)
[2018-04-15] MEDS ORDERED: predniSONE 10 MG TABLET (UD) PO ONE (10:00)
--- NOTE | 2018-04-15 10:29 | PN ---
BHS COWS - Scale Resting Pulse: 0= SD 80 or Below Sweatin= Chills/Flushing Restless Observation: 0= Sits Still Pupil Size: 0= Normal to Room Light Bone or Joint Aches: 1= Mild Discomfort Runny Nose/ Eye Tearin= Nasal Congestion GI Upset > 30mins: 1= Stomach Cramp Tremor Observation of Outstretched Hands: 1= Tremor [place], Not Seen Yawning Observation: 1= 1-2x During Session Anxiety or Irritability: 1=Feels Anxious/Irritable Goose Flesh Skin: 0=Smooth Skin COWS Score: 7 BHS Progress Note (SOAP) Subjective: feeling better less body aches mild tremor sleep better at night patient is taking xanax 2 mg po tid last filled 30 days supply on 03/26/18 patient preferred return to her xanax provider for her anxiety Objective: 04/15/18 10:28 Vital Signs Temperature 98.4 F 04/15/18 09:43 Pulse Rate 105 H 04/15/18 09:43 Respiratory Rate 20 04/15/18 09:43 Blood Pressure 96/56 L 04/15/18 09:43 O2 Sat by Pulse Oximetry (%) Laboratory Last Values WBC 8.4 K/mm3 (4.0-10.0) 04/14/18 07:40 RBC 4.34 M/mm3 (3.60-5.2) 04/14/18 07:40 Hgb 12.8 GM/dL (10.7-15.3) 04/14/18 07:40 Hct 36.2 % (32.4-45.2) 04/14/18 07:40 MCV 83.4 fl (80-96) 04/14/18 07:40 MCH 29.4 pg (25.7-33.7) 04/14/18 07:40 MCHC 35.2 g/dl (32.0-36.0) 04/14/18 07:40 RDW 13.8 % (11.6-15.6) 04/14/18 07:40 Plt Count 238 K/MM3 (134-434) D 04/14/18 07:40 MPV 8.7 fl (7.5-11.1) 04/14/18 07:40 Absolute Neuts (auto) 5.2 K/mm3 (1.5-8.0) 04/14/18 07:40 Neutrophils % 61.9 % (42.8-82.8) 04/14/18 07:40 Lymphocytes % 27.3 % (8-40) 04/14/18 07:40 Monocytes % 7.3 % (3.8-10.2) 04/14/18 07:40 Eosinophils % 3.2 % (0-4.5) 04/14/18 07:40 Basophils % 0.3 % (0-2.0) 04/14/18 07:40 Nucleated RBC % 0 % (0-0) 04/14/18 07:40 Sodium 138 mmol/L (136-145) 04/13/18 06:00 Potassium 4.2 mmol/L (3.5-5.1) 04/13/18 06:00 Chloride 103 mmol/L (98-107) 04/13/18 06:00 Carbon Dioxide 29 mmol/L (21-32) 04/13/18 06:00 Anion Gap 7 MMOL/L (8-16) L 04/13/18 06:00 BUN 13 mg/dL (7-18) 04/13/18 06:00 Creatinine 0.7 mg/dL (0.55-1.3) 04/13/18 06:00 Creat Clearance w eGFR > 60 (>60) 04/13/18 06:00 Random Glucose 70 mg/dL (74-106) L 04/13/18 06:00 Calcium 9.5 mg/dL (8.5-10.1) 04/13/18 06:00 Total Bilirubin 0.7 mg/dL (0.2-1) 04/13/18 06:00 AST 19 U/L (15-37) 04/13/18 06:00 ALT 18 U/L (13-61) 04/13/18 06:00 Alkaline Phosphatase 74 U/L (45-117) 04/13/18 06:00 Total Protein 7.8 g/dl (6.4-8.2) 04/13/18 06:00 Albumin 3.8 g/dl (3.4-5.0) 04/13/18 06:00 RPR Titer Nonreactive (NONREACTIVE) 04/13/18 06:00 lab noted Assessment: 04/15/18 10:28 mild opiate withdrawal sx informed pickler helper narcan kit from the pharmacy Plan: continue detox
[2018-04-15] MEDS: CITALOPRAM HYDROBROMIDE 20 MG TABLET (FP) PO SCH (10:43)
[2018-04-15] MEDS: PRENATAL VITAMINS W/ FOLIC ACID TABLET (FP) PO SCH (10:43)
[2018-04-15] MEDS: FLUOCINONIDE 0.05% TOP OINT (60 GM TUBE) TP SCH ×2 (10:43→22:26)
[2018-04-15] MEDS: hydrOXYzine PAMOATE 25 MG CAPSULE (FP) PO PRN (17:12)
[2018-04-15] MEDS: ALBUTEROL SO4 2.5/IPRATROPIUM 0.5 INH SOL 3 ML VIAL.NEB. NEB PRN (17:36)
[2018-04-15] MEDS: QUEtiapine FUMARATE 25 MG TABLET (FP) PO SCH (22:25)
[2018-04-15] MEDS: THIAMINE HCL 100 MG TABLET (FP) PO SCH (22:25)
[2018-04-16] MEDS ORDERED: METHADONE HCL 5 MG TABLET (FOR DETOX USE ONLY) PO ONE (06:00)
[2018-04-16 09:34] VITALS: BP 112/69; PULSE 105; TEMP 95.8
[2018-04-16] MEDS ORDERED: predniSONE 5 MG TABLET (UD) PO ONE (10:00)
[2018-04-16] MEDS: CITALOPRAM HYDROBROMIDE 20 MG TABLET (FP) PO SCH (12:11)
[2018-04-16] MEDS: PRENATAL VITAMINS W/ FOLIC ACID TABLET (FP) PO SCH (12:11)
[2018-04-16] MEDS: FLUOCINONIDE 0.05% TOP OINT (60 GM TUBE) TP SCH (12:11)
--- NOTE | 2018-04-16 12:48 | DS ---
[facility] Detox Discharge Summary Admission Date: 04/12/18 Discharge Date: 04/16/18 - History Present History: Opioid Dependence Additional Comments: 28 years old female admitted on 04/12/18 for opiate withdrawal stabilization completed detox regimen [facility] - Physical Exam Results Vital Signs: Vital Signs Temperature 95.8 F L 04/16/18 09:33 Pulse Rate 105 H 04/16/18 09:33 Respiratory Rate 18 04/16/18 09:33 Blood Pressure 112/69 04/16/18 09:33 O2 Sat by Pulse Oximetry (%) Pertinent Admission Physical Exam Findings: opiate withdrawal sx Laboratory Last Values WBC 8.4 K/mm3 (4.0-10.0) 04/14/18 07:40 RBC 4.34 M/mm3 (3.60-5.2) 04/14/18 07:40 Hgb 12.8 GM/dL (10.7-15.3) 04/14/18 07:40 Hct 36.2 % (32.4-45.2) 04/14/18 07:40 MCV 83.4 fl (80-96) 04/14/18 07:40 MCH 29.4 pg (25.7-33.7) 04/14/18 07:40 MCHC 35.2 g/dl (32.0-36.0) 04/14/18 07:40 RDW 13.8 % (11.6-15.6) 04/14/18 07:40 Plt Count 238 K/MM3 (134-434) D 04/14/18 07:40 MPV 8.7 fl (7.5-11.1) 04/14/18 07:40 Absolute Neuts (auto) 5.2 K/mm3 (1.5-8.0) 04/14/18 07:40 Neutrophils % 61.9 % (42.8-82.8) 04/14/18 07:40 Lymphocytes % 27.3 % (8-40) 04/14/18 07:40 Monocytes % 7.3 % (3.8-10.2) 04/14/18 07:40 Eosinophils % 3.2 % (0-4.5) 04/14/18 07:40 Basophils % 0.3 % (0-2.0) 04/14/18 07:40 Nucleated RBC % 0 % (0-0) 04/14/18 07:40 Sodium 138 mmol/L (136-145) 04/13/18 06:00 Potassium 4.2 mmol/L (3.5-5.1) 04/13/18 06:00 Chloride 103 mmol/L (98-107) 04/13/18 06:00 Carbon Dioxide 29 mmol/L (21-32) 04/13/18 06:00 Anion Gap 7 MMOL/L (8-16) L 04/13/18 06:00 BUN 13 mg/dL (7-18) 04/13/18 06:00 Creatinine 0.7 mg/dL (0.55-1.3) 04/13/18 06:00 Creat Clearance w eGFR > 60 (>60) 04/13/18 06:00 Random Glucose 70 mg/dL (74-106) L 04/13/18 06:00 Calcium 9.5 mg/dL (8.5-10.1) 04/13/18 06:00 Total Bilirubin 0.7 mg/dL (0.2-1) 04/13/18 06:00 AST 19 U/L (15-37) 04/13/18 06:00 ALT 18 U/L (13-61) 04/13/18 06:00 Alkaline Phosphatase 74 U/L (45-117) 04/13/18 06:00 Total Protein 7.8 g/dl (6.4-8.2) 04/13/18 06:00 Albumin 3.8 g/dl (3.4-5.0) 04/13/18 06:00 RPR Titer Nonreactive (NONREACTIVE) 04/13/18 06:00 lab noted - Treatment Hospital Course: Detox Protocol Followed, Detoxed Safely, Responded well, Discharged Condition Good, Rehab Referral Accepted Patient has Accepted a Re[facility] Referral to: [facility] - Medication Discharge Medications: Ambulatory Orders Citalopram Hydrobromide [Celexa -] 40 mg PO DAILY 03/10/18 Alprazolam [Xanax] 1 mg PO QID 04/12/18 Lamotrigine [Lamictal -] 50 mg PO BID 04/12/18 Albuterol Sulfate Inhaler - [Ventolin HFA Inhaler -] 2 inh PO Q4H PRN #1 inhaler 04/15/18 Naloxone HCl [Narcan] 4 mg NS ASDIR PRN #1 spray 04/15/18 - Diagnosis (1) Opioid dependence with withdrawal Current Visit: Yes Status: Acute (2) Weight loss Current Visit: Yes Status: Acute (3) Asthma Current Visit: Yes Status: Chronic Qualifiers: Asthma severity: mild Asthma persistence: intermittent Asthma complication type: uncomplicated Qualified Code(s): J45.20 - Mild intermittent asthma, uncomplicated (4) Eczema Current Visit: Yes Status: Chronic Qualifiers: Eczema type: unspecified Qualified Code(s): L30.9 - Dermatitis, unspecified - AMA Did Patient Leave Against Medical Advice: No
== END 2018-04-16 11:02 | disposition home or self-care (01) | DRG 773 ==
LOC: YASAS 10:19 → Y3N 15:06
PROVIDERS: ADMIT Surgery; ATTEND Surgery
PROC: HZ2ZZZZ Detoxification Services for Substance Abuse Treatment (ICD-10-PCS; principal; 2018-04-12)
DX: F11.23 Opioid dependence with withdrawal (principal); F31.81 Bipolar II disorder; F41.1 Generalized anxiety disorder; F90.9 Attention-deficit hyperactivity disorder, unspecified type; J44.1 Chronic obstructive pulmonary disease with (acute) exacerbation; J45.20 Mild intermittent asthma, uncomplicated; L30.9 Dermatitis, unspecified; D72.829 Elevated white blood cell count, unspecified; R00.0 Tachycardia, unspecified; R63.4 Abnormal weight loss; Z87.891 Personal history of nicotine dependence; Z91.5 Personal history of self-harm
CPT/HCPCS: 36415; 80053; 85025; 85027; 86593; 94640

== ENCOUNTER 2018-07-28 14:20 | Inpatient (IN) | payer OTHER | END 2018-08-02 10:27 | disposition home or self-care (01) | LOC: YASAS 14:20 → Y6N 17:45 ==